=== PATIENT | female | born 1995 | race African-American/Black ===

== ENCOUNTER 2020-07-12 13:15 | Inpatient (IN) | payer OTHER ==
[2020-07-12 14:25] LABS: BASOPHILS # (AUTO) 0.1 10^3/uL (0.0-0.1); BASOPHILS % (AUTO) 0.4 %; EOSINOPHILS # (AUTO) 0.1 10^3/uL (0.0-0.7); EOSINOPHILS % (AUTO) 0.6 %; HCT - HEMATOCRIT 34.9 % (37.0-47.0); HGB - HEMOGLOBIN 11.9 g/dL (12.0-16.0); LYMPHOCYTES # (AUTO) 1.9 10^3/uL (1.5-3.5); MEAN CORPUSCULAR HEMOGLOBIN 30.8 pg (27.0-31.0); MEAN CORPUSCULAR HGB CONC 34.1 g/dL (32.0-36.0); MEAN CORPUSCULAR VOLUME 90.4 fL (81.0-99.0); MEAN PLATELET VOLUME 11.5 fL (7.9-10.8); MONOCYTES # (AUTO) 1.1 10^3/uL (0.0-1.0); MONOCYTES % (AUTO) 9.2 %; NEUTROPHILS # (AUTO) 8.1 10^3/uL (1.5-6.6); NEUTROPHILS % (AUTO) 69.9 %; NRBC ABSOLUTE COUNT (AUTO) 0.07 x10^3/uL; NUCLEATED RED BLOOD CELLS AUTO 0.6 /100WBC; PLT - PLATELET COUNT 138 10^3/uL (130-450); RED BLOOD COUNT 3.86 10^6/uL (4.20-5.40); RED CELL DISTRIBUTION WIDTH 13.3 % (12.0-15.0); WHITE BLOOD COUNT 11.5 x10^3/uL (4.8-10.8)
[2020-07-12 14:59] LABS: BILIRUBIN,TOTAL 0.3 mg/dL (0.2-1.0); CALCIUM 9.6 mg/dL (8.5-10.3); POTASSIUM 3.7 mmol/L (3.5-5.0); TOTAL PROTEIN 6.1 g/dL (6.7-8.2); URIC ACID 6.2 mg/dL (2.6-7.2)
[2020-07-12 15:02] LABS: CREATININE,URINE 197.1 mg/dL; PROTEIN/CREATININE RATIO,URINE 0.1 (<=0.2)
[2020-07-12] MEDS ORDERED: OXYTOCIN/SODIUM CHLORIDE 500 ML IV PRN (16:03)
[2020-07-12] MEDS ORDERED: METHYLERGONOVINE 0.2 MG/ML VIAL IM PRN (16:03)
[2020-07-12] MEDS ORDERED: SODIUM CHLORIDE FLUSH 0.9% 10 ML SYRINGE IVP PRN (16:03)
[2020-07-12] MEDS ORDERED: LIDOCAINE-MPF 1% 30 ML VIAL ID PRN (16:03)
[2020-07-12] MEDS ORDERED: TRANEXAMIC ACID 1,000 MG in SODIUM CHLORIDE 0.9% 100ML 100 ML IV PRN (16:03)
[2020-07-12] MEDS ORDERED: miSOPROStoL 200 MCG TABLET BC PRN (16:03)
[2020-07-12] MEDS ORDERED: AMPICILLIN 2 GM in SODIUM CHLORIDE 0.9% MINIBAG 100 ML IV ONE (16:03)
[2020-07-12] MEDS ORDERED: fentaNYL 100 MCG/2 ML VIAL IVP PRN (16:03)
[2020-07-12] MEDS ORDERED: OXYTOCIN 10 UNIT/ML VIAL IM PRN (16:03)
[2020-07-12] MEDS ORDERED: CARBOPROST TROMETHAMINE 250 MCG/ML AMP IM PRN (16:03)
--- NOTE | 2020-07-12 16:15 | HISTORY & PHYSICAL EXAMINATION ---
Admit History - Visit Reason Visit Reason: Other (38.5 WEEKS GHTN) - : 1 Parity: 0 Premature: 0 Ectopic: 0 : 0 Care: positive: Other ([facility]) Risk/History: positive: induced HTN Complications This : positive: Treated for GBS/UTI Smoking Status: Former smoker - Mother's Labs Mother's Blood Type: positive: A Mother's RH: positive: Negative GBS: positive: Group B Strep Positive Rubella Status: positive: Immune Meds/Allgy - Allergies Allergies/Adverse Reactions: Allergies Allergy/AdvReac Type Severity Reaction Status Date / Time No Known Drug Allergies Allergy Verified 07/12/20 16:17 Physical - Abdominal Exam Vital Signs: Temp Pulse Resp BP Pulse Ox 36.6 C 80 18 138/77 H 99 07/12/20 14:25 07/12/20 13:36 07/12/20 13:36 07/12/20 13:36 07/12/20 13:36 Contraction Intensity: positive: Mild to moderate Uterine Resting Tone: positive: Soft - Monitoring Strip Review: positive: Category I - Presentation Presentation: positive: Vertex - Vaginal Exam Membranes: positive: Membranes intact Dilation (in cm): 2 Effacement (%): 80-90 Station: positive: -1 Cervical Position: positive: Posterior - Speculum Exam Speculum Exam Performed: positive: Yes - Other Notes Labor Progress Note/Additional Text: Heart RRR without M Lungs clear No CVA tenderness Abdomin 39 DTR +1 no clonus 2 + swellling Plan for Labor - Plan For Labor I expect patient to be DC'd or transferred within 96 hours.: Yes Plan for Labor: Cervical ripening with Cook cathiter. Start pit when 4+ Epidural PRN Ampicillin Fent PRN
[2020-07-12] MEDS: ONDANSETRON 4 MG/2 ML VIAL IVP PRN (16:40)
[2020-07-12] MEDS ORDERED: SODIUM CHLORIDE FLUSH 0.9% 10 ML SYRINGE IVP SCH (17:00)
[2020-07-12] MEDS: LACTATED RINGERS 1,000 ML IV SCH ×2 (18:07→18:40)
--- NOTE | 2020-07-12 18:45 | PROVIDER PROGRESS NOTE ---
Labor Progress Note - Uterine Monitoring Uterine Monitoring Mode: positive: External toco Contraction Frequency (min/apart): 3-5 Contraction Intensity: positive: Moderate Uterine Resting Tone: positive: Soft - Monitoring Monitor Mode: positive: External ultrasound Heart Rate Baseline: 135 Heart Rate Variability: positive: Moderate (6-25 bmp) Accelerations: positive: Present, 15x15 Decelerations: positive: None Strip Review: positive: Category I - Vaginal Exam Dilation (in cm): 5 Effacement (%): 80% Station: -1 Cervical Position: Posterior - Labor Progress Note Labor Progress Note/Additional Text: Cook catheter came out. moderate contractions. induction consent signed Start pit Epidural PRN
[2020-07-12] MEDS ORDERED: OXYTOCIN/SODIUM CHLORIDE 500 ML IV SCH (19:00)
[2020-07-12] MEDS: AMPICILLIN 1 GM in SODIUM CHLORIDE 0.9% MINIBAG 100 ML IV SCH (20:36)
[2020-07-13] MEDS: AMPICILLIN 1 GM in SODIUM CHLORIDE 0.9% MINIBAG 100 ML IV SCH ×3 (00:32→09:53)
[2020-07-13] MEDS: ONDANSETRON 4 MG/2 ML VIAL IVP PRN (01:35)
[2020-07-13] MEDS ORDERED: ROPIVACAINE 0.2% 200 MG/100 ML BAG EP ONE (01:59)
[2020-07-13] MEDS ORDERED: METOCLOPRAMIDE 10 MG/2 ML VIAL IVP PRN (02:28)
[2020-07-13] MEDS ORDERED: ROPIVACAINE 0.2% 200 MG/100 ML BAG EP PRN (02:28)
[2020-07-13] MEDS ORDERED: diphenhydrAMINE INJ 50 MG/ML VIAL IVP PRN (02:28)
[2020-07-13] MEDS ORDERED: NALBUPHINE 10 MG/ML AMP IVP PRN (02:28)
[2020-07-13] MEDS ORDERED: ePHEDrine 50 MG/ML VIAL IVP PRN (02:28)
[2020-07-13] MEDS ORDERED: ONDANSETRON 4 MG/2 ML VIAL IVP PRN (02:28)
[2020-07-13] MEDS ORDERED: NALOXONE 0.4 MG/ML VIAL IVP PRN (02:28)
--- NOTE | 2020-07-13 02:34 | ANESTHESIA ---
Pre-Anesthesia VS, & Labs - Diagnosis active labor - Procedure labor epidural Vital Signs: Temp Pulse Resp BP Pulse Ox 36.6 C 80 18 138/77 H 99 07/12/20 14:25 07/12/20 13:36 07/12/20 13:36 07/12/20 13:36 07/12/20 13:36 Height: 5 ft 10 in Weight (kg): 97.976 kg Body Mass Index: 30.9 BMI Classification: Obese - NPO Other (clears from now till delivery) - Is Patient ?: Yes - Lab Results Current Lab Results: Laboratory Tests 07/12/20 14:05: Blood Type A POSITIVE, Antibody Screen NEGATIVE 07/12/20 14:05: Sodium 135, Potassium 3.7, Chloride 105, Carbon Dioxide 20 L, Anion Gap 10.0, BUN 13, Creatinine 1.0, Estimated GFR (MDRD) 83 L, Glucose 98, Uric Acid 6.2, Calcium 9.6, Total Bilirubin 0.3, AST 30, ALT 20, Alkaline Phosphatase 168 H, Total Protein 6.1 L, Albumin 3.0 L, Globulin 3.1, Albumin/Globulin Ratio 1.0 07/12/20 14:05: WBC 11.5 H, RBC 3.86 L, Hgb 11.9 L, Hct 34.9 L, MCV 90.4, MCH 30.8, MCHC 34.1, RDW 13.3, Plt Count 138, MPV 11.5 H, Neut # (Auto) 8.1 H, Lymph # (Auto) 1.9, Robertson # (Auto) 1.1 H, Eos # (Auto) 0.1, Baso # (Auto) 0.1, Absolute Nucleated RBC 0.07, Nucleated RBC % 0.6 Lab results reviewed: Yes Fish Bones: 07/12/20 14:05 07/12/20 14:05 Home Medications and Allergies Active Medications Carboprost Tromethamine (Carboprost Tromethamine 250 Mcg/Ml Amp) 250 mcg IM Q15M PRN PRN Reason: Step 4: Hemorrhage protocol Stop: 07/17/20 16:05 Fentanyl (Fentanyl 100 Mcg/2 Ml Vial) 50 mcg IVP Q1H PRN PRN Reason: PAIN Lactated Ringer's (Lr) 1,000 mls @ 100 mls/hr IV .Q10H NORI Last Admin: 07/12/20 18:40 Dose: 100 mls/hr Documented by: Oxytocin/Sodium Chloride (Pitocin/Sodium Chloride) 500 mls @ 999 mls/hr IV PRN PRN; Protocol PRN Reason: POST- HEMORR PREVENTION Stop: 07/17/20 16:05 Tranexamic Acid 1,000 mg/ (Sodium Chloride) 110 mls @ 660 mls/hr IV .ONCE PRN PRN Reason: EBL >1200mL and within 3hr Stop: 07/17/20 16:05 Oxytocin/Sodium Chloride (Pitocin/Sodium Chloride) 500 mls @ 1 mls/hr IV TITR S ; Protocol Last Admin: 07/12/20 18:35 Dose: 1 milliunit/min, 1 mls/hr Documented by: Ampicillin Sodium 1 gm/ Sodium (Chloride) 100 mls @ 200 mls/hr IV Q4H [facility] Last Admin: 07/13/20 00:32 Dose: 200 mls/hr Documented by: Lidocaine HCl (Lidocaine-Mpf 1% 30 Ml Vial) 30 ml ID .ONCE PRN PRN Reason: PERINEAL REPAIR Stop: 07/17/20 16:05 Methylergonovine Maleate (Methylergonovine 0.2 Mg/Ml Vial) 0.2 mg IM .ONCE PRN PRN Reason: Step 2: Hemorrhage protocol Stop: 07/17/20 16:05 Misoprostol (Misoprostol 200 Mcg Tablet) 800 mcg BC .ONCE PRN PRN Reason: Step 3: Hemorrhage protocol Stop: 07/17/20 16:05 Ondansetron HCl (Ondansetron 4 Mg/2 Ml Vial) 4 mg IVP Q4HR PRN PRN Reason: Nausea / Vomiting Last Admin: 07/13/20 01:35 Dose: 4 mg Documented by: Oxytocin (Oxytocin 10 Unit/Ml Vial) 10 unit IM .ONCE PRN PRN Reason: Step one: If no IV access Stop: 07/17/20 16:05 Sodium Chloride (Sodium Chloride Flush 0.9% 10 Ml Syringe) 10 ml IVP 0100,0900,1700 [facility] Last Admin: 07/12/20 17:55 Dose: 10 ml Documented by: Sodium Chloride (Sodium Chloride Flush 0.9% 10 Ml Syringe) 10 ml IVP PRN PRN PRN Reason: NEEDED PER PROVIDER ORDERS Allergies/Adverse Reactions: Allergies Allergy/AdvReac Type Severity Reaction Status Date / Time No Known Drug Allergies Allergy Verified 07/12/20 16:17 Anes History & Medical History - Anesthetic History Anesthesia Complications: reports: No previous complications - Medical History Cardiovascular: reports: None Pulmonary: reports: None Gastrointestinal: reports: None Urinary: reports: None Neuro: reports: None Musculoskeletal: reports: None Smoking Status: Former smoker History of Cancer?: No - Obstetrical History : 1 Parity: 0 Events: positive: induced HTN Complications: positive: Treated for GBS/UTI Exam General: Alert Dental: WNL Mouth Opening: Greater than 4 Fingerbreadths Mallampati classification: II Thyromental Distance: greater than 6 cm Respiratory: Lungs clear Cardiovascular: Regular rate Plan Anesthesia Type: Epidural Consent for Procedure(s) Verified and Reviewed: Yes Code Status: Attempt Resuscitation ASA classification: 2-Mild systemic disease Is this case an emergency?: No
--- NOTE | 2020-07-13 07:54 | PROVIDER PROGRESS NOTE ---
Labor Progress Note - Uterine Monitoring Uterine Monitoring Mode: positive: External toco Contraction Frequency (min/apart): 1.5-2 min Contraction Intensity: positive: Strong Uterine Resting Tone: positive: Soft - Monitoring Monitor Mode: positive: External ultrasound Heart Rate Baseline: 140 Heart Rate Variability: positive: Moderate (6-25 bmp) Accelerations: positive: Present, 15x15 Decelerations: positive: None Strip Review: positive: Category I (corrently on sleep cycle) - Vaginal Exam Dilation (in cm): 10 Effacement (%): 100% Station: 1 Cervical Position: Anterior - Labor Progress Note Labor Progress Note/Additional Text: mild tachy ststole Started pushing.
--- NOTE | 2020-07-13 09:48 | PROVIDER PROGRESS NOTE ---
Labor Progress Note - Uterine Monitoring Uterine Monitoring Mode: positive: External toco Contraction Frequency (min/apart): 2-2.5 Contraction Intensity: positive: Strong Uterine Resting Tone: positive: Soft - Monitoring Monitor Mode: positive: External ultrasound Heart Rate Baseline: 135 Heart Rate Variability: positive: Moderate (6-25 bmp) Accelerations: positive: Present, 15x15 Decelerations: positive: Early, Recurrent (>50% x20 min) Strip Review: positive: Category I - Vaginal Exam Dilation (in cm): c Effacement (%): c Station: 2 (caput) Cervical Position: Anterior - Labor Progress Note Labor Progress Note/Additional Text: Pushing 2 hours. every other for tolerance.
[2020-07-13] MEDS ORDERED: ROPIVACAINE 0.2% PF 20ML VIAL ONE (09:54)
[2020-07-13] MEDS ORDERED: WITCH HAZEL/GLYCERIN 1 PAD TOP PRN (12:13)
[2020-07-13] MEDS ORDERED: HYDROCORTISONE 1% CREAM 28 GM TUBE PR PRN (12:13)
[2020-07-13] MEDS ORDERED: ACETAMINOPHEN 325 MG TABLET PO PRN (12:13)
[2020-07-13] MEDS: LACTATED RINGERS 1,000 ML IV SCH ×2 (12:20→16:32)
--- NOTE | 2020-07-13 12:21 | DELIVERY NOTE ---
Delivery Note - Labor Labor: positive: Augmented by oxytocin - Delivery Method Delivery Method: positive: Vacuum assist - Cervical Ripening Method Cervical Ripening Method: positive: Balloon device - Presentation Presentation: positive: Vertex, CONNER - right occiput anterior - Nuchal Cord Nuchal Cord: positive: None - Anesthetic Anesthetic Type: - Amniotic Fluid Description Amniotic Fluid Description: positive: Clear - Vacuum Use Indication for Vacuum Use: positive: Suspicion of immediate or potential compromise Type of Vacuum Cup: positive: Cup: Rigid Vacuum Extraction: positive: Successful (Pulled with 3 contractions) - Episiotomy Type Episiotomy Type: positive: Midline - Laceration Laceration: positive: 3rd degree - Suture Suture Type: positive: Vicryl Suture Size: positive: 3-0 - Delivery Outcome Delivery Outcome: positive: Livebirth - : positive: Bulb syringe, Stimulated [place] sex: positive: Male (Apgars 5/9, weight 11lb 9.8oz) - Cord Cord: positive: 3 vessels - Placenta Placenta: positive: Intact - Estimated Blood Loss Estimated Blood Loss (in cc): 800 - Post Delivery Events Post Delivery Events: positive: Shoulder dystocia (1:45 resopnded to Mikayla and delivery of the posterior shouldere and corkscrew manover.) - Delivery Comments (Free Text/Narrative) Delivery Comments (Free Text/Narrative): see dictation.
[2020-07-13] MEDS: IBUPROFEN 600 MG TABLET PO SCH ×2 (13:41→20:15)
[2020-07-13] MEDS: DOCUSATE SODIUM 250 MG CAPSULE PO SCH ×2 (13:41→20:15)
[2020-07-13] MEDS ORDERED: SIMETHICONE CHEW 80 MG TABLET PO SCH (14:00)
--- NOTE | 2020-07-13 14:07 | OPERATIVE REPORT ---
DATE OF SERVICE: 07/13/2020 Physician: Michele Cloud MD DATE OF DELIVERY: 07/13/2020. DELIVERY NOTE Patient spontaneously ruptured at 0020 on the morning of 07/13/2020. She developed some tachy systole with this with contractions about every 1 to 2 minutes, and for this reason, the Pitocin was stopped. The strip remained reactive throughout this time. She reached complete at 0634, was allowed to labor down. She started pushing, and during this timeframe, she was still having rapid heartbeats and was noted to have decelerations while pushing, so it was decided to push with every other contractions. She was noted to have some loss of variability with slow return. For this reason, it was decided to proceed on with a vacuum delivery. This was discussed with the patient and her and the issue of possibly having a section if this was unsuccessful. As mentioned she pulled through 3 contractions; there were no pop-offs. The vacuum was placed at +3. A second-degree episiotomy was cut, and at 1104 the head delivered. At this point, it was felt to be very large in size. Inessa maneuvers were initiated. She had a 1-minute 45-second shoulder dystocia. The Inessa maneuver was utilized, following this the posterior shoulder was delivered and corkscrewed, and then the remainder of the infant was delivered. The body also showed some difficulty with delivery. She delivered completely at 1105. The was noted to be somewhat floppy. The oropharynx and nasopharynx were bulb suctioned and then the cord was doubly clamped, and the was handed to the city administrator and resuscitative team that were standing by. A live male infant was delivered. Apgars were 5 and 9. Cord gases were obtained; the arterial was 7.27, the venous was 7.29. The placenta followed, it was inspected and noted to be intact. There was some difficulty with some bleeding at this time, this was treated with Pitocin. There was also bleeding from the episiotomy site. This was inspected carefully, and she was noted to have a third-degree laceration. The rectal mucosa was felt to be intact. Five [id number] were placed on the rectal sphincter capsule. At this point, the vaginal mucosa was closed using a running locking suture of 3-0 Vicryl. The perineum was reapproximated and following this, the perineum was closed utilizing a Z stitch with a returning stitch subcuticular. Good hemostasis was observed at this time. At this point, a rectal examination was performed, and there was no evidence of any retained sutures in the rectal mucosa. The sponge count was performed at this time, as well as an instrument count, and both of these were noted to be complete. Estimated blood loss was 800 mL. The patient had an episode of some hypotension, which was treated with 500 mL bolus, which the patient tolerated well. A stat hemoglobin and hematocrit was performed, at which time her hemoglobin was noted to be 9.8, it had fallen from 11.9. TD: 07/13/2020 13:18 ELDA
[2020-07-13] MEDS ORDERED: IRON DEXTRAN 1,000 MG in SODIUM CHLORIDE 0.9% 250 ML IV SCH (14:30)
[2020-07-13 18:13] LABS: BASOPHILS % (AUTO) 0.3 %; EOSINOPHILS % (AUTO) 0.2 %; HCT - HEMATOCRIT 23.9 % (37.0-47.0); HGB - HEMOGLOBIN 8.1 g/dL (12.0-16.0); LYMPHOCYTES % (AUTO) 8.4 %; MEAN CORPUSCULAR HEMOGLOBIN 31.5 pg (27.0-31.0); MEAN CORPUSCULAR HGB CONC 33.9 g/dL (32.0-36.0); MEAN PLATELET VOLUME 11.2 fL (7.9-10.8); MONOCYTES % (AUTO) 6.4 %; NEUTROPHILS % (AUTO) 82.7 %; PLT - PLATELET COUNT 118 10^3/uL (130-450); RED BLOOD COUNT 2.57 10^6/uL (4.20-5.40); RED CELL DISTRIBUTION WIDTH 13.3 % (12.0-15.0); WHITE BLOOD COUNT 21.9 x10^3/uL (4.8-10.8)
[2020-07-13 18:16] LABS: ABNORMAL LYMPHS % (MANUAL) 0 %
[2020-07-13 18:29] LABS: ALBUMIN 2.2 g/dL (3.2-5.5); BILIRUBIN,TOTAL 1.3 mg/dL (0.2-1.0); CALCIUM 8.5 mg/dL (8.5-10.3); CREATININE 1.1 mg/dL (0.4-1.0); POTASSIUM 4.1 mmol/L (3.5-5.0); TOTAL PROTEIN 4.5 g/dL (6.7-8.2); URIC ACID 4.3 mg/dL (2.6-7.2)
[2020-07-13 18:35] LABS: BAND NEUTROPHILS % (MANUAL) 2 %; LYMPHOCYTES # (MANUAL) 1.5 10^3/uL (1.5-3.5); LYMPHOCYTES % (MANUAL) 7 %; MONOCYTES # (MANUAL) 0.7 10^3/uL (0.0-1.0); NEUTROPHILS # (MANUAL) 19.7 10^3/uL (1.5-6.6)
[2020-07-13 18:36] LABS: DIFFERENTIAL COMMENT MANUAL DIFFERENTIAL; PLATELET ESTIMATE, MANUAL DECREASED (<130,000) (NORMAL); PLATELET MORPHOLOGY RARE GIANT PLATELETS (NORMAL); RBC MORPHOLOGY (MULTIPLE) NORMAL APPEARANCE (NORMAL)
[2020-07-13 19:18] LABS: CREATININE,URINE 31.7 mg/dL
[2020-07-13 19:23] LABS: TOTAL PROTEIN,URINE TIMED < 6 mg/dL
[2020-07-13 20:29] LABS: ESTIMATED AVERAGE GLUCOSE 117 mg/dL (70-100); HEMOGLOBIN A1c% 5.7 % (4.27-6.07)
[2020-07-13] MEDS: oxyCODONE 5 MG TABLET PO PRN (20:38)
[2020-07-13] MEDS ORDERED: DOCUSATE SODIUM 100 MG CAPSULE PO SCH (21:00)
[2020-07-14] MEDS: IBUPROFEN 600 MG TABLET PO SCH ×3 (01:11→23:14)
[2020-07-14] MEDS: oxyCODONE 5 MG TABLET PO PRN ×4 (05:20→23:12)
[2020-07-14 06:08] LABS: BASOPHILS # (AUTO) 0.1 10^3/uL (0.0-0.1); BASOPHILS % (AUTO) 0.3 %; EOSINOPHILS # (AUTO) 0.1 10^3/uL (0.0-0.7); EOSINOPHILS % (AUTO) 0.5 %; HCT - HEMATOCRIT 24.5 % (37.0-47.0); HGB - HEMOGLOBIN 8.2 g/dL (12.0-16.0); LYMPHOCYTES # (AUTO) 3.8 10^3/uL (1.5-3.5); LYMPHOCYTES % (AUTO) 17.1 %; MEAN CORPUSCULAR HEMOGLOBIN 31.7 pg (27.0-31.0); MEAN CORPUSCULAR HGB CONC 33.5 g/dL (32.0-36.0); MEAN CORPUSCULAR VOLUME 94.6 fL (81.0-99.0); MEAN PLATELET VOLUME 11.3 fL (7.9-10.8); MONOCYTES # (AUTO) 1.5 10^3/uL (0.0-1.0); MONOCYTES % (AUTO) 6.8 %; NEUTROPHILS % (AUTO) 72.2 %; NRBC ABSOLUTE COUNT (AUTO) 0.06 x10^3/uL; NUCLEATED RED BLOOD CELLS AUTO 0.3 /100WBC; PLT - PLATELET COUNT 126 10^3/uL (130-450); RED BLOOD COUNT 2.59 10^6/uL (4.20-5.40); RED CELL DISTRIBUTION WIDTH 13.6 % (12.0-15.0); WHITE BLOOD COUNT 22.1 x10^3/uL (4.8-10.8)
[2020-07-14 06:09] LABS: SLIDE REVIEW? Indicated
[2020-07-14 06:19] LABS: ALBUMIN 2.6 g/dL (3.2-5.5); BILIRUBIN,TOTAL 0.7 mg/dL (0.2-1.0); CREATININE 1.1 mg/dL (0.4-1.0); POTASSIUM 4.3 mmol/L (3.5-5.0); TOTAL PROTEIN 5.1 g/dL (6.7-8.2); URIC ACID 4.7 mg/dL (2.6-7.2)
[2020-07-14 06:34] LABS: PLATELET ESTIMATE, MANUAL DECREASED (<130,000) (NORMAL); PLATELET MORPHOLOGY NORMAL APPEARANCE (NORMAL); RBC MORPHOLOGY (MULTIPLE) NORMAL APPEARANCE (NORMAL)
--- NOTE | 2020-07-14 09:09 | PROVIDER PROGRESS NOTE ---
Subjective - Prog Note Date Prog Note Date: 07/14/20 Prog Note Time: 09:06 - Subjective Pt reports feeling: Improved (Pain 10. Pt notes adiquit pain control. breast feeding) Objective - Vital Signs/Intake & Output Reviewed Vital Signs: Yes Vital Signs: Vital Signs x48h Temp Pulse Resp BP Pulse Ox 07/14/20 03:30 36.9 C 79 16 133/59 H 100 07/14/20 01:09 36.8 C 91 16 136/74 H 98 Intake & Output: Intake & Output 07/11/20 07/12/20 07/13/20 07/14/20 23:59 23:59 23:59 23:59 Intake Total 200 3490 Output Total 1550 600 Balance 200 1940 -600 - Objective General Appearance: positive: No acute distress, Alert Abdomen: positive: Non-tender, Mass (u-1 nontender) Extremities: positive: Pedal edema (trace). negative: Calf tenderness, Hayden's sign/cords - Lab Results Fish Bones: 07/14/20 06:04 07/14/20 06:04 Other Labs: Lab Results x24hrs 07/14/20 07/14/20 07/13/20 Range/Units 06:04 06:04 18:35 WBC 22.1 H (4.8-10.8) x10^3/uL RBC 2.59 L (4.20-5.40) 10^6/uL Hgb 8.2 L (12.0-16.0) g/dL Hct 24.5 L (37.0-47.0) % MCV 94.6 (81.0-99.0) fL MCH 31.7 H (27.0-31.0) pg MCHC 33.5 (32.0-36.0) g/dL RDW 13.6 (12.0-15.0) % Plt Count 126 L (130-450) 10^3/uL MPV 11.3 H (7.9-10.8) fL Neut # (Auto) 16.0 H Lymph # (Auto) 3.8 H [place] # (Auto) 1.5 H Eos # (Auto) 0.1 Baso # (Auto) 0.1 Absolute Nucleated RBC 0.06 Total Counted Band Neuts % (Manual) (0 - 10) % Abnorm Lymph % (Manual) % Nucleated RBC % 0.3 Neutrophils # (Manual) (1.5-6.6) 10^3/uL Lymphocytes # (Manual) (1.5-3.5) 10^3/uL Monocytes # (Manual) (0.0-1.0) 10^3/uL Eosinophils # (Manual) (0-0.7) 10^3/uL Basophils # (Manual) (0-0.1) 10^3/uL Differential Comment Manual Slide Review Indicated Platelet Estimate DECREASED (<130,000) (NORMAL) Platelet Morphology NORMAL APPEARANCE (NORMAL) RBC Morph Micro Appear NORMAL APPEARANCE (NORMAL) Sodium 135 (135-145) mmol/L Potassium 4.3 (3.5-5.0) mmol/L Chloride 104 (101-111) mmol/L Carbon Dioxide 23 (21-32) mmol/L Anion Gap 8.0 (6-13) BUN 13 (6-20) mg/dL Creatinine 1.1 H (0.4-1.0) mg/dL Estimated GFR (MDRD) 75 L (>89) Glucose 108 H (70-100) mg/dL Estimat Average Glucose (70-100) mg/dL Hemoglobin A1c % (4.27-6.07) % Uric Acid 4.7 (2.6-7.2) mg/dL Calcium 9.0 (8.5-10.3) mg/dL Total Bilirubin 0.7 (0.2-1.0) mg/dL AST 41 (10-42) IU/L ALT 22 (10-60) IU/L Alkaline Phosphatase 131 H (42-121) IU/L Total Protein 5.1 L (6.7-8.2) g/dL Albumin 2.6 L (3.2-5.5) g/dL Globulin 2.5 (2.1-4.2) g/dL Albumin/Globulin Ratio 1.0 (1.0-2.2) Urine Creatinine 31.7 mg/dL Ur Total Protein Timed < 6 mg/dL Protein/Creatinin Ratio Not Reportable Blood Type Antibody Screen Crossmatch IS Only 07/13/20 07/13/20 07/13/20 Range/Units 17:57 17:57 17:57 WBC 21.9 H (4.8-10.8) x10^3/uL RBC 2.57 L (4.20-5.40) 10^6/uL Hgb 8.1 L (12.0-16.0) g/dL Hct 23.9 L (37.0-47.0) % MCV 93.0 (81.0-99.0) fL MCH 31.5 H (27.0-31.0) pg MCHC 33.9 (32.0-36.0) g/dL RDW 13.3 (12.0-15.0) % Plt Count 118 L (130-450) 10^3/uL MPV 11.2 H (7.9-10.8) fL Neut # (Auto) Not Reportable Lymph # (Auto) Not Reportable [place] # (Auto) Not Reportable Eos # (Auto) Not Reportable Baso # (Auto) Not Reportable Absolute Nucleated RBC Not Reportable Total Counted 100 Band Neuts % (Manual) 2 (0 - 10) % Abnorm Lymph % (Manual) 0 % Nucleated RBC % Not Reportable Neutrophils # (Manual) 19.7 H (1.5-6.6) 10^3/uL Lymphocytes # (Manual) 1.5 (1.5-3.5) 10^3/uL Monocytes # (Manual) 0.7 (0.0-1.0) 10^3/uL Eosinophils # (Manual) 0.0 (0-0.7) 10^3/uL Basophils # (Manual) 0.0 (0-0.1) 10^3/uL Differential Comment MANUAL DIFFERENTIAL Manual Slide Review Platelet Estimate DECREASED (<130,000) (NORMAL) Platelet Morphology RARE GIANT PLATELETS (NORMAL) RBC Morph Micro Appear NORMAL APPEARANCE (NORMAL) Sodium 134 L (135-145) mmol/L Potassium 4.1 (3.5-5.0) mmol/L Chloride 105 (101-111) mmol/L Carbon Dioxide 20 L (21-32) mmol/L Anion Gap 9.0 (6-13) BUN 13 (6-20) mg/dL Creatinine 1.1 H (0.4-1.0) mg/dL Estimated GFR (MDRD) 75 L (>89) Glucose 180 H (70-100) mg/dL Estimat Average Glucose 117 H (70-100) mg/dL Hemoglobin A1c % 5.7 (4.27-6.07) % Uric Acid 4.3 (2.6-7.2) mg/dL Calcium 8.5 (8.5-10.3) mg/dL Total Bilirubin 1.3 H (0.2-1.0) mg/dL AST 35 (10-42) IU/L ALT 19 (10-60) IU/L Alkaline Phosphatase 129 H (42-121) IU/L Total Protein 4.5 L (6.7-8.2) g/dL Albumin 2.2 L (3.2-5.5) g/dL Globulin 2.3 (2.1-4.2) g/dL Albumin/Globulin Ratio 1.0 (1.0-2.2) Urine Creatinine mg/dL Ur Total Protein Timed mg/dL Protein/Creatinin Ratio Blood Type Antibody Screen Crossmatch IS Only 07/13/20 07/12/20 Range/Units 12:37 14:05 WBC (4.8-10.8) x10^3/uL RBC (4.20-5.40) 10^6/uL Hgb 9.8 L (12.0-16.0) g/dL Hct (37.0-47.0) % MCV (81.0-99.0) fL MCH (27.0-31.0) pg MCHC (32.0-36.0) g/dL RDW (12.0-15.0) % Plt Count (130-450) 10^3/uL MPV (7.9-10.8) fL Neut # (Auto) Lymph # (Auto) [place] # (Auto) Eos # (Auto) Baso # (Auto) Absolute Nucleated RBC Total Counted Band Neuts % (Manual) (0 - 10) % Abnorm Lymph % (Manual) % Nucleated RBC % Neutrophils # (Manual) (1.5-6.6) 10^3/uL Lymphocytes # (Manual) (1.5-3.5) 10^3/uL Monocytes # (Manual) (0.0-1.0) 10^3/uL Eosinophils # (Manual) (0-0.7) 10^3/uL Basophils # (Manual) (0-0.1) 10^3/uL Differential Comment Manual Slide Review Platelet Estimate (NORMAL) Platelet Morphology (NORMAL) RBC Morph Micro Appear (NORMAL) Sodium (135-145) mmol/L Potassium (3.5-5.0) mmol/L Chloride (101-111) mmol/L Carbon Dioxide (21-32) mmol/L Anion Gap (6-13) BUN (6-20) mg/dL Creatinine (0.4-1.0) mg/dL Estimated GFR (MDRD) (>89) Glucose (70-100) mg/dL Estimat Average Glucose (70-100) mg/dL Hemoglobin A1c % (4.27-6.07) % Uric Acid (2.6-7.2) mg/dL Calcium (8.5-10.3) mg/dL Total Bilirubin (0.2-1.0) mg/dL AST (10-42) IU/L ALT (10-60) IU/L Alkaline Phosphatase (42-121) IU/L Total Protein (6.7-8.2) g/dL Albumin (3.2-5.5) g/dL Globulin (2.1-4.2) g/dL Albumin/Globulin Ratio (1.0-2.2) Urine Creatinine mg/dL Ur Total Protein Timed mg/dL Protein/Creatinin Ratio Blood Type A POSITIVE Antibody Screen NEGATIVE Crossmatch IS Only See Detail Assessment/Plan - Problem List (2) Shoulder (girdle) dystocia during labor and delivery Impression: baby doing well (3) Anemia, Impression: Hemoglobin stablized. elivated White count with out uterine tenderness
[2020-07-14] MEDS: ACETAMINOPHEN 500 MG TABLET PO PRN ×2 (09:22→23:13)
[2020-07-14] MEDS: DOCUSATE SODIUM 250 MG CAPSULE PO SCH ×2 (09:23→21:00)
[2020-07-15] MEDS: IBUPROFEN 600 MG TABLET PO SCH ×3 (05:07→17:25)
[2020-07-15 05:15] LABS: BASOPHILS # (AUTO) 0.1 10^3/uL (0.0-0.1); BASOPHILS % (AUTO) 0.4 %; EOSINOPHILS # (AUTO) 0.2 10^3/uL (0.0-0.7); EOSINOPHILS % (AUTO) 1.1 %; LYMPHOCYTES # (AUTO) 3.6 10^3/uL (1.5-3.5); LYMPHOCYTES % (AUTO) 21.9 %; MEAN CORPUSCULAR HEMOGLOBIN 30.9 pg (27.0-31.0); MEAN CORPUSCULAR HGB CONC 32.8 g/dL (32.0-36.0); MEAN CORPUSCULAR VOLUME 94.1 fL (81.0-99.0); MEAN PLATELET VOLUME 10.3 fL (7.9-10.8); MONOCYTES # (AUTO) 1.3 10^3/uL (0.0-1.0); MONOCYTES % (AUTO) 7.9 %; NEUTROPHILS # (AUTO) 10.3 10^3/uL (1.5-6.6); NEUTROPHILS % (AUTO) 62.9 %; NRBC ABSOLUTE COUNT (AUTO) 0.12 x10^3/uL; NUCLEATED RED BLOOD CELLS AUTO 0.7 /100WBC; PLT - PLATELET COUNT 99 10^3/uL (130-450); RED BLOOD COUNT 2.04 10^6/uL (4.20-5.40); RED CELL DISTRIBUTION WIDTH 13.9 % (12.0-15.0); WHITE BLOOD COUNT 16.4 x10^3/uL (4.8-10.8)
[2020-07-15 05:25] LABS: HCT - HEMATOCRIT 19.2 % (37.0-47.0); HGB - HEMOGLOBIN 6.3 g/dL (12.0-16.0)
[2020-07-15 05:26] LABS: ABNORMAL LYMPHS % (MANUAL) 0 %; BAND NEUTROPHILS % (MANUAL) 0 %
[2020-07-15 05:39] LABS: EOSINOPHILS # (MANUAL) 0.2 10^3/uL (0-0.7); LYMPHOCYTES # (MANUAL) 3.8 10^3/uL (1.5-3.5); LYMPHOCYTES % (MANUAL) 23 %; MONOCYTES # (MANUAL) 1.1 10^3/uL (0.0-1.0); NEUTROPHILS # (MANUAL) 11.3 10^3/uL (1.5-6.6)
[2020-07-15 05:40] LABS: PLATELET ESTIMATE, MANUAL DECREASED (<130,000) (NORMAL); PLATELET MORPHOLOGY NORMAL APPEARANCE (NORMAL); RBC MORPHOLOGY (MULTIPLE) 1+ HYPOCHROMASIA (NORMAL)
[2020-07-15] MEDS: ACETAMINOPHEN 500 MG TABLET PO PRN ×2 (08:12→16:16)
[2020-07-15] MEDS: DOCUSATE SODIUM 250 MG CAPSULE PO SCH ×2 (08:13→19:51)
[2020-07-15 09:15] LABS: BASOPHILS # (AUTO) 0.1 10^3/uL (0.0-0.1); BASOPHILS % (AUTO) 0.3 %; EOSINOPHILS # (AUTO) 0.2 10^3/uL (0.0-0.7); EOSINOPHILS % (AUTO) 1.2 %; LYMPHOCYTES % (AUTO) 19.5 %; MEAN CORPUSCULAR HEMOGLOBIN 31.9 pg (27.0-31.0); MEAN CORPUSCULAR HGB CONC 33.5 g/dL (32.0-36.0); MEAN CORPUSCULAR VOLUME 95.2 fL (81.0-99.0); MEAN PLATELET VOLUME 10.9 fL (7.9-10.8); MONOCYTES % (AUTO) 6.2 %; NEUTROPHILS # (AUTO) 10.2 10^3/uL (1.5-6.6); NRBC ABSOLUTE COUNT (AUTO) 0.09 x10^3/uL; NUCLEATED RED BLOOD CELLS AUTO 0.6 /100WBC; PLT - PLATELET COUNT 105 10^3/uL (130-450); RED BLOOD COUNT 2.07 10^6/uL (4.20-5.40); RED CELL DISTRIBUTION WIDTH 13.9 % (12.0-15.0); WHITE BLOOD COUNT 15.5 x10^3/uL (4.8-10.8)
[2020-07-15 09:19] LABS: HCT - HEMATOCRIT 19.7 % (37.0-47.0); HGB - HEMOGLOBIN 6.6 g/dL (12.0-16.0)
[2020-07-15] MEDS: oxyCODONE 5 MG TABLET PO PRN ×3 (11:17→19:51)
[2020-07-16] MEDS: ACETAMINOPHEN 500 MG TABLET PO PRN ×2 (00:23→08:50)
[2020-07-16] MEDS: IBUPROFEN 600 MG TABLET PO SCH ×2 (00:24→08:51)
[2020-07-16] MEDS ORDERED: IBUPROFEN 800 MG TABLET PO ONE (00:28)
[2020-07-16 05:39] LABS: BASOPHILS % (AUTO) 0.5 %; EOSINOPHILS % (AUTO) 1.4 %; HCT - HEMATOCRIT 25.4 % (37.0-47.0); HGB - HEMOGLOBIN 8.5 g/dL (12.0-16.0); LYMPHOCYTES % (AUTO) 21.7 %; MEAN CORPUSCULAR HEMOGLOBIN 30.9 pg (27.0-31.0); MEAN CORPUSCULAR HGB CONC 33.5 g/dL (32.0-36.0); MEAN CORPUSCULAR VOLUME 92.4 fL (81.0-99.0); MEAN PLATELET VOLUME 10.8 fL (7.9-10.8); MONOCYTES % (AUTO) 7.8 %; NEUTROPHILS % (AUTO) 61.5 %; PLT - PLATELET COUNT 140 10^3/uL (130-450); RED BLOOD COUNT 2.75 10^6/uL (4.20-5.40); RED CELL DISTRIBUTION WIDTH 14.4 % (12.0-15.0); WHITE BLOOD COUNT 14.6 x10^3/uL (4.8-10.8)
[2020-07-16 05:43] LABS: ABNORMAL LYMPHS % (MANUAL) 0 %
[2020-07-16] MEDS: oxyCODONE 5 MG TABLET PO PRN ×2 (06:04→09:42)
[2020-07-16 06:16] LABS: BAND NEUTROPHILS % (MANUAL) 1 %; EOSINOPHILS # (MANUAL) 0.1 10^3/uL (0-0.7); LYMPHOCYTES # (MANUAL) 4.1 10^3/uL (1.5-3.5); LYMPHOCYTES % (MANUAL) 28 %; METAMYELOCYTES % (MANUAL) 2 %; MONOCYTES # (MANUAL) 0.7 10^3/uL (0.0-1.0); MYELOCYTES % (MANUAL) 3 %; NEUTROPHILS # (MANUAL) 8.9 10^3/uL (1.5-6.6)
[2020-07-16 06:17] LABS: DIFFERENTIAL COMMENT MANUAL DIFFERENTIAL; PLATELET ESTIMATE, MANUAL NORMAL (130-450,000) (NORMAL); PLATELET MORPHOLOGY NORMAL APPEARANCE (NORMAL); RBC MORPHOLOGY (MULTIPLE) NORMAL APPEARANCE (NORMAL); WBC MORPHOLOGY (MULTIPLE) NORMAL APPEARANCE (NORMAL)
[2020-07-16 08:13] VITALS: BP 142/64
[2020-07-16] MEDS: DOCUSATE SODIUM 250 MG CAPSULE PO SCH (08:50)
--- NOTE | 2020-07-16 11:19 | Labor Flowsheet ---
Labor Flowsheet Datetime Report Generated by CPN: 07/16/2020 11:19 Datetime: 07/16/2020 07:43 VITAL SIGNS NBP Sys/Natalya/Mean (mmHg): 142 : 64 : 82 Pulse: 78 Datetime: 07/15/2020 17:50 SpO2 (%): 100 Datetime: 07/13/2020 13:30 PAIN Pain Scale: 0 Datetime: 07/13/2020 12:42 PATIENT CARE IV/Blood Work: IV Bolus Given ml @ 500 Patient Care Comments: LR@150 per provider Provider Notified (Name): Dr. Giem Communication Comments: Provider aware IV bolus ended and that patient had another period of lighth eadedness Datetime: 07/13/2020 11:34 Station Vacuum/Forceps Applied: +3 Datetime: 07/13/2020 11:18 Stage of : Recovery Datetime: 07/13/2020 11:17 Medication Comments: Pitocin @ 999mL/hr Datetime: 07/13/2020 11:16 LaborFlag: Labor Datetime: 07/13/2020 11:05 UTERINE ACTIVITY Monitor Mode: External Frequency (min): 1.5-2.5 Quality: Strong Duration (sec): 60-70 Pattern: Normal: <= 5 Contractions in 10 Minutes Resting Tone (Palpate): Relaxed ASSESSMENT A Monitor Mode: External US FHR Baseline Rate : 120 Variability: Moderate 6-25 bpm Accelerations: 10X10 Oxygen Method: Room Air Datetime: 07/13/2020 11:04 Vacuum: Off Datetime: 07/13/2020 11:00 Anesthesia Level Check: T10- Umbilicus Datetime: 07/13/2020 10:45 Decelerations: Variable Category: Category II Datetime: 07/13/2020 10:15 Comments: Possible decel at 10:13 Datetime: 07/13/2020 10:08 I/O Interventions: Straight Cath (ml) @ 50 Datetime: 07/13/2020 09:53 Antibiotics: Ampicillin IV 1 Gm Datetime: 07/13/2020 09:51 COMMUNICATION Communication: Provider at Bedside Datetime: 07/13/2020 09:49 ANESTHESIA Epidural Procedure: Loading Dose Datetime: 07/13/2020 09:01 Temperature (C): 36.6 Datetime: 07/13/2020 08:01 Stage 2 Comments: Begin pushing every other contraction Datetime: 07/13/2020 07:54 STAGE 2 Pushing: Coached on Pushing; No Urge to Push Pushing Position: Pushing with Contractions; Pushing Lithotomy Pushing Progress: Descent with Pushing Datetime: 07/13/2020 07:28 VAGINAL EXAM Dilatation (cm): 9.5 Exam by: Dr. Giem Vaginal Exam Comments: A Datetime: 07/13/2020 07:04 Resting Tone IUP (mmHg): Datetime: 07/13/2020 06:35 Temperature Route: Oral Datetime: 07/13/2020 06:34 Effacement (%): 100 Station: 0 Datetime: 07/13/2020 05:19 Patient Position/Activity: Left Lateral Datetime: 07/13/2020 05:14 Pain Presence: None/Denies Pain Type: N/A Pain Coping: Sleeping Datetime: 07/13/2020 03:55 Pain Relief Measures: Epidural Given Amniotic Fluid Color: Clear Amniotic Fluid Amount: Small Membrane Comments: bloody show noted Datetime: 07/13/2020 03:30 Actions for Decelerations: Side to Side Datetime: 07/13/2020 03:00 Pain Assessment Comments: pt states ctxs are still painfull but legs are numb and they feel better than before the epidural Datetime: 07/13/2020 02:50 MEDICATIONS Pitocin (milliunits): Discontinued Datetime: 07/13/2020 02:35 Monitor Interventions for FHR: Ultrasound Adjusted Comfort Measures: Breathing/Relaxation Anesthesia Comments: pt states legs feel tingly Datetime: 07/13/2020 02:30 TEACHING Instructional Method: Verbal Plan of Care: Plan of Care Discussed; Vaginal Delivery Pain Management: Epidural Datetime: 07/13/2020 02:13 Epidural Procedure Other: Pump Started Datetime: 07/13/2020 02:07 Monitor Interventions for UA: Aten Adjusted Datetime: 07/13/2020 01:50 PROCEDURE TIME OUT Procedure Verify: Correct Patient Identity; Correct Side and Site are Marked; Accurate Procedure Co nsent Form; Agreement on Procedure to be Done; Correct Patient Position; Addressed Need to Administer Antibiotics or Fluids for Irrigation; Safety Precautions Based on Patient History or Medication Use Datetime: 07/13/2020 01:34 Antiemetics/Antacids: Zofran (mg) @ 4 Datetime: 07/13/2020 01:30 Notification Reason: Labor Status Datetime: 07/13/2020 01:20 Pain Location: Abdomen Membrane Status: Ruptured Membranes Rupture Method: Spontaneous Datetime: 07/13/2020 01:18 MATERNAL ASSESSMENT Level of Consciousness: Alert DTR's/Clonus: DTRs 2+; No Clonus Headache: Denies Breath Sounds, Left: Clear and Equal Breath Sounds, Right: Clear and Equal RUQ Epigastric Pain: Denies Datetime: 07/13/2020 01:00 Vibroacoustic Stim: Datetime: 07/12/2020 23:21 Nausea/Vomiting: Denies Datetime: 07/12/2020 19:36 Respirations: 18 Datetime: 07/12/2020 18:38 Cervix, Position: Posterior Datetime: 07/12/2020 18:35 Provider Reviewed Strip: Yes Datetime: 07/12/2020 18:30 FHR Baseline Changes: No Baseline Change
--- NOTE | 2020-07-16 13:32 | PROVIDER PROGRESS NOTE ---
Subjective - Prog Note Date Prog Note Date: 07/16/20 Prog Note Time: 07:30 - Subjective Pt reports feeling: Improved (Pt feels much improved since transfusion yesterday PM. Passing flatus, breast feeding, ambulatins, passed stool.) Objective - Vital Signs/Intake & Output Reviewed Vital Signs: Yes Vital Signs: Vital Signs x48h Temp Pulse Resp BP Pulse Ox 07/16/20 08:13 36.9 C 78 16 142/64 H 100 Intake & Output: Intake & Output 07/13/20 07/14/20 07/15/20 07/16/20 23:59 23:59 23:59 23:59 Intake Total 3490 250 1390 300 Output Total 1550 600 2 Balance 1940 -350 1388 300 - Objective General Appearance: positive: No acute distress Eyes Bilateral: positive: PERRL, EOMI Respiratory: positive: Chest non-tender, No respiratory distress, Breath sounds nml Cardiovascular: positive: Regular rate & rhythm, No murmur Extremities: negative: Calf tenderness, Hayden's sign/cords - Lab Results Fish Bones: 07/16/20 05:15 07/14/20 06:04 Other Labs: Lab Results x24hrs 07/16/20 07/12/20 Range/Units 05:15 23:55 WBC 14.6 H (4.8-10.8) x10^3/uL RBC 2.75 L (4.20-5.40) 10^6/uL Hgb 8.5 L (12.0-16.0) g/dL Hct 25.4 L (37.0-47.0) % MCV 92.4 (81.0-99.0) fL MCH 30.9 (27.0-31.0) pg MCHC 33.5 (32.0-36.0) g/dL RDW 14.4 (12.0-15.0) % Plt Count 140 (130-450) 10^3/uL MPV 10.8 (7.9-10.8) fL Neut # (Auto) Not Reportable Lymph # (Auto) Not Reportable [place] # (Auto) Not Reportable Eos # (Auto) Not Reportable Baso # (Auto) Not Reportable Absolute Nucleated RBC Not Reportable Total Counted 100 Band Neuts % (Manual) 1 (0 - 10) % Abnorm Lymph % (Manual) 0 % Metamyelocytes % 2 H ( - 0) % Myelocytes % 3 H ( - 0) % Nucleated RBC % Not Reportable Neutrophils # (Manual) 8.9 H (1.5-6.6) 10^3/uL Lymphocytes # (Manual) 4.1 H (1.5-3.5) 10^3/uL Monocytes # (Manual) 0.7 (0.0-1.0) 10^3/uL Eosinophils # (Manual) 0.1 (0-0.7) 10^3/uL Basophils # (Manual) 0.0 (0-0.1) 10^3/uL Differential Comment MANUAL DIFFERENTIAL WBC Morphology NORMAL APPEARANCE (NORMAL) Platelet Estimate NORMAL (130-450,000) (NORMAL) Platelet Morphology NORMAL APPEARANCE (NORMAL) RBC Morph Micro Appear NORMAL APPEARANCE (NORMAL) Blood Type A POSITIVE Antibody Screen NEGATIVE Crossmatch IS Only See Detail Assessment/Plan - Problem List (1) Vacuum-assisted vaginal delivery Impression: recovering well Discussed breast feeding contraception Bleeding Discharge medications oxycodone 5 mg Motrin 800 mg Colace 100 mg RTC one week Call if problems (3) Anemia, Impression: good responce to transfusion. continue Iron.
--- NOTE | 2020-07-16 13:37 | Discharge Plan ---
Discharge Plan Problem Reviewed?: Yes Disposition: Home, Self Care Diet: Regular Activity Restrictions: Pelvic rest 6 wks Shower Restrictions: No Driving Restrictions: Yes (Not while taking narcotics) Weight Bearing: Full Weight No Smoking: If you smoke, Please STOP! Call for help.
--- NOTE | 2020-07-16 15:21 | DISCHARGE SUMMARY ---
Physician: Michele Cloud MD DATE OF ADMISSION: 07/12/2020 DATE OF DISCHARGE: 07/16/2020 ADMITTING DIAGNOSIS: A 24-year-old primigravida at 38+ weeks' gestation with gestational hypertension. PROCEDURES: 1. Cook cathiter 2. Pitocin induction 3. Epidural 4. Vacuum assisted vaginal delivery 5. Repair of 3rd extension 6. Transfusion of 2 units packed Red Blood cells DISCHARGE DIAGNOSES 1. A 24-year-old primigravida at 38+ weeks' gestation with 2. Gestational hypertension 3. Macrosomic infant, 11 pounds 9 ounces. 4. Shoulder dystocia. 5. Third-degree laceration. 6. hemorrhage PRESENTING HISTORY: Patient is a 24-year-old female, who had her care done at [facility]. She developed blood pressures at term and, for this reason, was transferred for her gestational hypertension. She started her OB care early at roughly 10 weeks EGA. She had a hemoglobin A1c, which was performed, which was normal. Her 50 gram Glucola was also noted to be normal. Father of the baby weighed 9 pounds. The remainder of her course was unremarkable. There were some questions of some anomalies with heart. Received an ultrasound with [facility], and this was cleared. This was done at 21 weeks. She had 2 pressures noted to be above 140/90 the day of admission and the day before and, for this reason, was transferred to our care for delivery. LABORATORIES: CBC on admission showed a white count of 11.5, hemoglobin 11.9, hematocrit was 34.9. Her platelets were 134. The remainder of her [facility] labs showed normal AST. Her creatinine 1.1. Her uric acid was 6.2. Her protein- creatinine ratio was 0.1. She reached a kalee of 6.3 on the . For this reason, she received a transfusion of 2 units. Post transfusion, her hemoglobin was 8.5, hematocrit was 25.2. Her platelets rebounded to 140. HOSPITAL COURSE: The patient was admitted for cervical ripening. She had a Cook catheter placed. This came out spontaneously. She was 5 cm at that time. She had Pitocin started. She had an epidural placed and following this spontaneously ruptured. Following the epidural, she had mild tachysystole. She was noted to be 10 cm, 100% and -1. She was noted to have a category 1 strip. She progressed to complete and pushed well; however, had some maternal exhaustion as well as some decelerations. For this reason, at +3 a vacuum was placed, pulled through 3 contractions, at which time delivered the head of the infant and was felt to be quite large. Inessa maneuvers were immediately engaged. There was some difficulty with delivering the anterior shoulder, so the posterior shoulder was delivered and rotated around to anterior. The remainder of the infant came. The infant weighed 11 pounds 9.8 ounces. It Infrastructure Project Manager was standing by at delivery. The Apgars were 5 and 9. She had a second-degree laceration episiotomy extended to a third-degree. At time of delivery, estimated blood loss was 800 mL was noted. For this reason, she received IV iron. Her followup CBCs were stable at 8.2 and 8.1; however, this fell to 6.3. For this reason, it was decided to transfuse her with 2 units. This was done successfully. She is doing well at this time. She had got this, and she was being discharged to home. DISCHARGE MEDICATIONS 1. Motrin. 2. Oxycodone. 3. Colace. She is instructed to follow up in the clinic in 1 week. We encouraged at this time. She has been informed is not adequate contraception. TD: 07/16/2020 13:48 j ELDA
[2020-07-16] MEDS ORDERED: IBUPROFEN 800 MG TABLET PO SCH (17:00)
== END 2020-07-16 10:35 | disposition home or self-care (01) | DRG 768 ==
LOC: WFO 13:15 → FBP 13:19 → WFO 16:02 → FBP 16:03
PROVIDERS: ADMIT Obstetrics & Gynecology; ATTEND Obstetrics & Gynecology
PROC: 0U7C7ZZ Dilation of Cervix, Via Natural or Artificial Opening (ICD-10-PCS; 2020-07-12)
PROC: 10D07Z6 Extraction of Products of Conception, Vacuum, Via Natural or Artificial Opening (ICD-10-PCS; principal; 2020-07-13)
PROC: 0DQR0ZZ Repair Anal Sphincter, Open Approach (ICD-10-PCS; 2020-07-13)
PROC: 0W8NXZZ Division of Female Perineum, External Approach (ICD-10-PCS; 2020-07-13)
PROC: 30233N1 Transfusion of Nonautologous Red Blood Cells into Peripheral Vein, Percutaneous Approach (ICD-10-PCS; 2020-07-15)
DX: O13.4 Gestational [pregnancy-induced] hypertension without significant proteinuria, complicating childbirth (principal); Z37.0 Single live birth; D62 Acute posthemorrhagic anemia; O90.81 Anemia of the puerperium; O72.1 Other immediate postpartum hemorrhage; Z3A.38 38 weeks gestation of pregnancy; O99.824 Streptococcus B carrier state complicating childbirth; O70.21 Third degree perineal laceration during delivery, IIIa; O66.0 Obstructed labor due to shoulder dystocia; O75.89 Other specified complications of labor and delivery; R00.0 Tachycardia, unspecified; O76 Abnormality in fetal heart rate and rhythm complicating labor and delivery; O66.2 Obstructed labor due to unusually large fetus; O75.81 Maternal exhaustion complicating labor and delivery; Z87.891 Personal history of nicotine dependence
CPT/HCPCS: 36415; 80053; 82570; 83036; 84156; 84550; 85018; 85025; 86850; 86900; 86901; 86920; A9270; J1750; J2795; J7120; P9016; 88307

== ENCOUNTER 2020-07-24 15:23 | Outpatient (CLI) | payer OTHER ==
[2020-07-24 15:50] LABS: HGB - HEMOGLOBIN 11.3 g/dL (12.0-16.0); MEAN CORPUSCULAR HGB CONC 33.1 g/dL (32.0-36.0); MEAN CORPUSCULAR VOLUME 93.4 fL (81.0-99.0); MEAN PLATELET VOLUME 8.6 fL (7.9-10.8); RED BLOOD COUNT 3.65 10^6/uL (4.20-5.40); RED CELL DISTRIBUTION WIDTH 13.7 % (12.0-15.0); WHITE BLOOD COUNT 11.1 x10^3/uL (4.8-10.8)
== END 2020-07-24 15:24 | disposition home or self-care (01) ==
LOC: LAB 15:23
PROVIDERS: ATTEND Obstetrics & Gynecology
DX: O90.89 Other complications of the puerperium, not elsewhere classified (principal); O90.81 Anemia of the puerperium; D62 Acute posthemorrhagic anemia
CPT/HCPCS: 36415; 85027

== ENCOUNTER 2020-07-31 08:00 | Outpatient (CLI) | payer OTHER ==
[2020-08-01 19:41] LABS: BACTERIAL VAGINOSIS DNA NEGATIVE (NEGATIVE); CANDIDA GLABRATA DNA NEGATIVE (NEGATIVE); CANDIDA GROUP DNA NEGATIVE (NEGATIVE); CANDIDA KRUSEI DNA NEGATIVE (NEGATIVE); TRICHOMONAS VAGINALIS DNA NEGATIVE (NEGATIVE)
== END 2020-07-31 23:59 | disposition home or self-care (01) ==
LOC: LAB.R 08:00
PROVIDERS: ATTEND Obstetrics & Gynecology
DX: B37.3 Candidiasis of vulva and vagina (principal)
CPT/HCPCS: 87661; 87801